=== PATIENT | female | born 1975 | race Caucasian/White ===

== ENCOUNTER 2019-10-05 15:29 | Emergency (ER) | payer OTHER ==
[~2019-10-05] VITALS: Ht 167.6 cm; Wt 82.6 kg
[2019-10-05 15:34] VITALS: BP 129/69
--- NOTE | 2019-10-05 15:53 | NUR ---
43 Y/O F C/C PAIN ON RIGHT HAND THIRD DIGIT, PER PATIENT SINCE OF DECEMBER OF LAST YEAR. DIGIT PRESENTS CONSTRICTED, LIMITED ROM, CMS WNL. NKA. NO HX. NO RX. NO NVD. AMBULATED TO CHAIR C.
[2019-10-05] MEDS: HYDROcodone/APAP 5/325 MG 1 TAB TAB PO SCH (16:01)
[2019-10-05 16:07] VITALS: BP 129/69
--- NOTE | 2019-10-05 16:07 | NUR ---
Patient discharged with v/s stable. Written and verbal after care instructions given and explained. Patient alert, oriented and verbalized understanding of instructions. Ambulatory with steady gait. All questions addressed prior to discharge. ID band removed. Patient advised to follow up with PMD. Rx of [place] 5mg-325mg given. Patient educated on indication of medication including possible reaction and side effects. Opportunity to ask questions provided and answered.
== END 2019-10-05 16:07 | disposition home or self-care (01) ==
LOC: MED 15:29
DX: G89.29 Other chronic pain (principal); M79.641 Pain in right hand; R03.0 Elevated blood-pressure reading, without diagnosis of hypertension; Z98.890 Other specified postprocedural states
CPT/HCPCS: 99283